=== PATIENT | female | born 1970 | race Caucasian/White ===

== ENCOUNTER 2023-01-31 09:00 | Day surgery (SDC) | payer BC, SELFPAY ==
[2023-01-31 09:27] VITALS: BP 149/75; PULSE 82; RESP 18; TEMP 36; O2SAT 96; BMI 29.0
--- NOTE | 2023-01-31 09:28 | P.HP_ITS ---
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 PO DAILY 12/17/22 01/29/23 History Thyroid) estradiol 0.025 mg/24 hr See Rx Instructions .Route .COMPLEX 01/29/23 01/31/23 History semiweekly transdermal patch progesterone micronized 200 mg 200 mg PO BEDTIME 01/31/23 01/31/23 History capsule Allergies/Adverse Reactions Allergy/AdvReac Type Severity Reaction Status Date / Time ranitidine [From Zantac] Allergy Unknown Unverified 12/17/22 08:46 Pertinent History/Comorbid Conditions* Social History Smoking and tobacco/nicotine status: never used tobacco/nicotine Alcohol intake: never Marital status: Current occupational status: employed Pertinent Exam Findings alert, oriented x 3, clear to auscultation bilaterally and regular rate & rhythm Recommendations Surgery/Procedure today Coding Level of Care Code Acute Code for Chg Fwd Diagnoses
[2023-01-31] MEDS: sodium chloride 0.9% 1,000 ML 30 ML IV (09:31)
--- NOTE | 2023-01-31 09:35 | ANES.PREANE2 ---
Pre-Anesthetic Assessment Height/Weight: Height 1.68 m Weight 81.647 kg Temp Pulse Resp BP Pulse Ox O2 Del Method 96.8 F L 82 18 149/75 96 Room Air 01/31/23 09:27 01/31/23 09:27 01/31/23 09:27 01/31/23 09:27 01/31/23 09:27 01/31/23 09:27 Preop Diagnosis: need for screening colonoscopy Operation Date: 01/31/23 10:35 Proposed Procedures p Colonoscopy 11428,Z12.11(Not Applicable) - Nestor Regalado MD Familial anesthetic complications: None Was Beta Rita taken within 24 hours: N/A Was Clonidine taken within 24 hours: N/A Last intake: Intake Last Liquid Date 01/30/23 Last Liquid Time 22:00 Last Solid Date 01/29/23 Last Solid Time 19:00 Social No alcohol and No tobacco Exam alert, oriented x 3, clear to auscultation bilaterally and regular rate & rhythm Airway Mallampati: Class I Dentition: full Metabolic Thyroid Disease Anesthetic Plan ASA status: 1 Anesthesia: MAC Risk of > 500 ml blood loss (7ml/kg in children): No Medications/Allergies Home Medications Medication Instructions Recorded Confirmed Last Taken Type citalopram 10 mg tablet 10 mg PO DAILY 12/17/22 01/31/23 01/29/23 History thyroid (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 12/17/22 01/29/23 01/29/23 History Thyroid) estradiol 0.025 mg/24 hr See Rx Instructions .Route .COMPLEX 01/29/23 01/31/23 01/28/23 History semiweekly transdermal patch progesterone micronized 200 mg 200 mg PO BEDTIME 01/31/23 01/31/23 01/29/23 History capsule Allergies Allergy/AdvReac Type Severity Reaction Status Date / Time ranitidine [From Zantac] Allergy Unknown Unverified 12/17/22 08:46 Current Medications Generic Name Dose Route Start Last Admin Trade Name Freq PRN Reason Stop Dose Admin Sodium Chloride 1,000 mls @ 30 mls/hr 01/31/23 09:15 01/31/23 09:31 Sodium Chloride 0.9% IV 30 mls/hr .Q24H SYLVAIN Administration PFSH Anesthesia Social History (Updated 12/17/22 @ 08:51 by Sandra Escobar) Smoking and tobacco/nicotine status: never used tobacco/nicotine Alcohol intake: never Marital status: Current occupational status: employed Data Anesthesia Cardiac Studies: No Data to Display
[2023-01-31 12:11] VITALS: BP 112/66; PULSE 75; RESP 16; TEMP 36.3; O2SAT 95
[2023-01-31 12:21] VITALS: BP 116/63; PULSE 71; RESP 16; O2SAT 97
--- NOTE | 2023-01-31 12:40 | ANE.PACU2 ---
Inpatient post-anesthesia follow up: Airway intact: Yes Vital signs: Temperature 97.4 F Pulse Rate 71 Respiratory Rate 16 Blood Pressure 116/63 Pulse Oximetry 97 Oxygen Delivery Me thod Room Air Oxygen Flow Rate Fraction of Inspir ed Oxygen Hydration adequate: Yes Nausea and vomiting: No Pain level: 1 Mental status: Baseline
== END 2023-01-31 12:42 | disposition home or self-care (01) ==
PROVIDERS: PCP Nurse Practitioner Family; Visit Provider Surgery
PROC: 0DJD8ZZ Inspection of Lower Intestinal Tract, Via Natural or Artificial Opening Endoscopic (ICD-10-PCS; CPT 45378; principal; 2023-01-31 10:35)
DX: Z12.11 Encounter for screening for malignant neoplasm of colon (principal); D12.4 Benign neoplasm of descending colon; D12.8 Benign neoplasm of rectum
CPT/HCPCS: 45385; 88305; J2704; J7030